=== PATIENT | male | born 1990 | race Caucasian/White ===

== ENCOUNTER 2023-11-02 17:51 | Outpatient (CLI) | payer OTHER, SELFPAY | END 2023-11-02 17:52 | disposition home or self-care (01) | PROVIDERS: PCP Nurse Practitioner Family; Visit Provider Nurse Practitioner Family | DX: E10.9 Type 1 diabetes mellitus without complications (principal) | CPT/HCPCS: 80053; 80061; 82043; 82570; 84443 ==